=== PATIENT | female | born 1980 | race Caucasian/White ===

== ENCOUNTER 2016-09-20 05:45 | Inpatient (IN) | payer OTHER ==
[2016-09-20 06:46] VITALS: BMI 39.9
[2016-09-20] MEDS ORDERED: TUBERCULIN PPD 5 TU/0.1ML SYRINGE (IN PATIENT USE ONLY) ID ONE (07:00)
[2016-09-20] MEDS ORDERED: LACTATED RINGERS SOLUTION 500 ML IV SCH ×2 (07:30→08:30)
[2016-09-20 07:41] LABS: BASOPHIL 0.4 % (0-2.0); EOSINOPHIL 1.2 % (0-4.5); MCH 30.6 pg (25.7-33.7); MCHC 34.3 g/dl (32.0-36.0); MEAN CELL VOLUME 89.3 fl (80-96); MEAN PLT VOLUME 7.1 fl (7.5-11.1); NEUTROPHILS 69.1 % (42.8-82.8); PLATELET COUNT 250 K/MM3 (134-434); RDW 14.6 % (11.6-15.6)
[2016-09-20 07:45] LABS: ANION GAP 9 (8-16); CALCIUM 9.2 mg/dL (8.5-10.1); CO2 23 mmol/L (21-32); CREATININE 0.5 mg/dL (0.55-1.02); GLUCOSE,RANDOM 105 mg/dL (74-106)
[2016-09-20 08:06] LABS: INR 0.97 (0.82-1.09); PROTHROMBIN TIME (PATIENT) 10.7 SEC (9.98-11.88)
[2016-09-20 08:09] LABS: ACTIVATED PTT 28.5 SECONDS (26.9-34.4)
[2016-09-20] MEDS ORDERED: PROMETHAZINE HCL 25 MG/1 ML VIAL IVPUSH ONE (08:11)
[2016-09-20] MEDS ORDERED: BUTORPHANOL TARTRATE 1 MG/ML VIAL IVPB ONE (08:11)
[2016-09-20] MEDS ORDERED: AMPICILLIN - 100 ML IVPB ONE (08:13)
[2016-09-20] MEDS: ELECTROLYTE-148 SOLN 1,000 ML IV SCH ×3 (10:00→15:18)
--- NOTE | 2016-09-20 10:11 | HP ---
Past Medical History - Admission Chief Complaint: Painful contractions. History of Present Illness: 36 y/o with SIUP at 39 weeks gestation here with complaints of painful contractions since early this a.m. Patient was initially scheduled for IOL 2/2 A1GDM, gHTN and pt with h/o macrosomia - EFW most recently 4267gm on 09/12. GBS positive. RH negative, s/p Rhogam on 07/07/16. Pt also with remote h/o chalmydia. Pt reports +FM, no VB/LOF upon arrival. Pt 1cm upon arrival to floor at 6am. History Source: Patient, Medical Record Limitations to Obtaining History: No Limitations - Past Medical History Pulmonary: No: Asthma, COPD Gastrointestinal: No: GERD Hepatobiliary: No: Hepatitis B Reproductive: No: Ectopic , Endometriosis, Fibroids ...: 7 ...Para: 2 ...Term: 2 ...: 0 ...Spon : 0 ...Induced : 4 ...Multiple Gestation: 0 ...LMP: 12/22/15 ... Weeks Gestation by Dates: 39 ...EDC by Dates: 09/27/16 ...EDC by Sono: 09/29/16 Heme/Onc: No: Anemia, Sickle Cell Trait Infectious Disease: No: HIV, MRSA, STD's Psych: No: Anxiety, Bipolar, Depression - Past Surgical History Hx Myomectomy: No Hx Transabdominal Cerclage: No - Smoking History Smoking history: Never smoked Have you smoked in the past 12 months: No - Alcohol/Substance Use Hx Alcohol Use: No - Social History Usual Living Arrangement: Yes: With Significant Other History of Recent Travel: No Home Medications - Allergies Allergies/Adverse Reactions: Allergies Allergy/AdvReac Type Severity Reaction Status Date / Time No Known Allergies Allergy Verified 09/16/16 10:52 - Home Medications Home Medications: Ambulatory Orders Pnv95/Ferrous Fumarate/FA [ Vitamin Tablet] 1 each PO DAILY 09/06/16 Review of Systems - Review of Systems Constitutional: reports: No Symptoms Eyes: reports: No Symptoms HENT: reports: No Symptoms Neck: reports: No Symptoms Cardiovascular: reports: No Symptoms Respiratory: reports: No Symptoms Gastrointestinal: denies: Constipation, Diarrhea Genitourinary: reports: Pain (contraction pain) Musculoskeletal: reports: No Symptoms Integumentary: reports: No Symptoms Neurological: reports: No Symptoms Hematology/Lymphatic: reports: No Symptoms Psychiatric: reports: No Symptoms Physical Exam - Maternity Vital Signs: Vital Signs Temperature 97.8 F 09/20/16 06:40 Pulse Rate 84 09/20/16 09:00 Respiratory Rate 18 09/20/16 09:00 Blood Pressure 135/86 09/20/16 09:00 O2 Sat by Pulse Oximetry (%) Constitutional: Yes: Well Nourished, No Distress, Calm Eyes: Yes: Conjunctiva Clear, EOM Intact HENT: Yes: Atraumatic, Normocephalic Neck: Yes: Supple, Trachea Midline Cardiovascular: Yes: Regular Rate and Rhythm Lungs: Normal air movement - Abdominal Exam/OB Number of Fetuses: Single Presentation: Vertex Contractions: Yes Regularity: Regular Intensity: Moderate Monitor Mode: External Heart Rate (range): 125 Category: II Accelerations: None Decelerations: None - Vaginal Exam/OB Dilatation (cm): 4 Effacement (%): 100 Amniotic Membrane Status: Ruptured (AROM for clear but blood tinged fluid on this exam) Presentation: Vertex/Position Station: -3 - Physical Exam Psychiatric: Yes: Alert, Oriented - Labs Lab Results: CBC, BMP 09/20/16 07:10 09/20/16 07:10 Hemorrhage Risk Assessment - Risk Factors Medium Risk Factors: Yes: None High Risk Factors: Yes: None Risk Score: 1 Risk Level: Medium Risk Problem List - Problems (1) Active labor at term Code(s): VJD4603 - (2) Gestational diabetes mellitus (GDM) Code(s): O24.419 - GESTATIONAL DIABETES MELLITUS IN , UNSP CONTROL (3) Gestational hypertension Code(s): O13.9 - GESTATIONAL HTN W/O SIGNIFICANT PROTEINURIA, UNSP TRIMESTER Assessment/Plan 36 y/o with SIUP at 39 weeks in labor - AFVSS - FHTS cat 1 upon arrival, now category 2 s/p stadol (minimal variability - no accelerations or decelerations), making active progress, continue to monitor - Active labor, s/p AROM, continue expectant management - GBS positive - continue ampicillin - gHTN - pt asymptomatic, BPs overall WNL with some mild outliers, to monitor
[2016-09-20] MEDS ORDERED: LACTATED RINGERS SOLUTION 1,000 ML IV SCH (10:30)
[2016-09-20] MEDS: FENTANYL/BUPIVACAINE/NS/PF - PCEA - 50 ML DISP.SYRIN EP SCH ×2 (11:15→15:36)
[2016-09-20] MEDS: AMPICILLIN - 100 ML IVPB SCH ×3 (12:34→20:30)
--- NOTE | 2016-09-20 13:45 | PN ---
Ante-Partal Exam - Subjective Subjective: Pt comfortable Vital Signs: Vital Signs Temperature 98.0 F 09/20/16 12:28 Pulse Rate 100 H 09/20/16 13:00 Respiratory Rate 20 09/20/16 13:00 Blood Pressure 126/58 09/20/16 13:00 O2 Sat by Pulse Oximetry (%) 100 09/20/16 13:00 Bleeding: Yes Bleeding Description: Mild Headache: No Visual changes: No Right upper quadrant pain: No - Contractions Contractions: Yes Regularity: Regular Intensity: Mod/Strong Monitor Mode: External - Exam during Labor Heart Rate: 145 Variability: Moderate Category: I Monitor Accelerations: Absent Monitor Decelerations: None Exam: Vaginal Dilatation (cm): 7 Effacement (%): 100 Amniotic Membrane Status: Ruptured - Assessment/Plan Assessment/Plan: continue expectant management GBS positive, continue ampicillin anticipate
--- NOTE | 2016-09-20 17:29 | PN ---
Ante-Partal Exam - Subjective Subjective: Patient feeling some contractions on the left side. Vital Signs: Vital Signs Temperature 97.8 F 09/20/16 15:56 Pulse Rate 93 H 09/20/16 16:15 Respiratory Rate 20 09/20/16 16:15 Blood Pressure 139/79 09/20/16 16:15 O2 Sat by Pulse Oximetry (%) 99 09/20/16 16:15 Bleeding: Yes Bleeding Description: Mild (consistent with bloody show) Headache: No Visual changes: No Right upper quadrant pain: No - Contractions Contractions: Yes Regularity: Regular Intensity: Mod/Strong Monitor Mode: External - Exam during Labor Heart Rate: 145 Variability: Moderate Category: I Monitor Decelerations: None Exam: Vaginal Dilatation (cm): 9.5 Effacement (%): 100 Amniotic Membrane Status: Ruptured Amniotic Fluid: Clear Presentation: Vertex Station: -2 - Intrapartum Hemorrhage Risk Medium Risk Factors: None High Risk Factors: None Risk Score: 0 Risk Level: Low Risk - Assessment/Plan Assessment/Plan: 36 y/o with SIUP at 39 weeks, labor, A1GDM and gestational HTN - FHTS cat 1 - active labor, 9.5cm dilated, attempted pushing at this time with little descent. Will allow to rest and return to pushing in approx 60 minutes - GBS positive, continue ampicillin
[2016-09-20] MEDS ORDERED: OXYTOCIN 15 UNITS/ LR 250 ML 250 ML IVPB SCH (17:30)
[2016-09-20] MEDS ORDERED: CITRIC ACID/SODIUM CITRATE 30 ML UNIT-DOSE CUP PO ONE (18:53)
--- NOTE | 2016-09-20 18:56 | PN ---
Ante-Partal Exam - Subjective Subjective: Pt complaining of pain with contractions. Pt now 10/100/+1 and to begin pushing. Vital Signs: Vital Signs Temperature 99.4 F 09/20/16 17:36 Pulse Rate 107 H 09/20/16 18:30 Respiratory Rate 24 09/20/16 18:30 Blood Pressure 135/79 09/20/16 18:30 O2 Sat by Pulse Oximetry (%) 100 09/20/16 18:30 Bleeding: Yes Bleeding Description: Mild Headache: No Visual changes: No Right upper quadrant pain: No - Contractions Contractions: Yes Regularity: Regular Intensity: Mod/Strong - Exam during Labor Heart Rate: 150 Variability: Minimal Category: I Monitor Accelerations: Absent Monitor Decelerations: None Exam: Vaginal Dilatation (cm): 10 Effacement (%): 100 Amniotic Membrane Status: Ruptured Station: +1 (+1 with contractions) - Assessment/Plan Assessment/Plan: Pt pushing for approximately 20 minutes, tachycardia to the 200s with pushing. Pt making little descent. Pt desires delivery. Nursing, anesthesia and nursery aware. plan for c section
[2016-09-20] MEDS: OXYTOCIN 20 UNITS in 0.9% NS 1,000 ML IV SCH ×2 (19:43→21:35)
[2016-09-20] MEDS ORDERED: oxyCODONE HCL 5 MG TABLET PO PRN (20:25)
[2016-09-20] MEDS ORDERED: CARBOPROST TROMETHAMINE 250 MCG/ML AMPUL IM PRN (20:27)
--- NOTE | 2016-09-20 20:30 | OP ---
Operative Note - Note: Operative Date: 09/20/16 Pre-Operative Diagnosis: SIUP at 39 weeks, labor, GBS positive, arrest of descent Operation: primary delivery Findings: normal b/l tubes and ovaries Post-Operative Diagnosis: Same as Pre-op Surgeon: Tricia Valladares Sous Chef: Anderson Perez Anesthesiologist/PLATING TANK OPERATOR APPRENTICE: Ricardo Adler Anesthesia: Epidural Specimens Removed: placenta Estimated Blood Loss (mls): 800 Operative Report Dictated: Yes
[2016-09-20] MEDS ORDERED: morphine SULFATE/Preservative Free 0.5 MG/ML (1cc Syringe) EP ONE (20:46)
[2016-09-20] MEDS: IBUPROFEN 800 MG/8 ML IJ IVPB PRN (21:35)
[2016-09-20 22:25] LABS: BASOPHIL 0.2 % (0-2.0); MCH 30.4 pg (25.7-33.7); MCHC 33.6 g/dl (32.0-36.0); MEAN CELL VOLUME 90.4 fl (80-96); MEAN PLT VOLUME 7.5 fl (7.5-11.1); NEUTROPHILS 89.3 % (42.8-82.8); PLATELET COUNT 256 K/MM3 (134-434); RDW 14.5 % (11.6-15.6); WHITE BLOOD COUNT 21.4 K/mm3 (4.0-10.0)
[2016-09-21] MEDS: AMPICILLIN - 100 ML IVPB SCH (01:24)
[2016-09-21] MEDS: IBUPROFEN 800 MG/8 ML IJ IVPB PRN (03:59)
[2016-09-21] MEDS: OXYTOCIN 20 UNITS in 0.9% NS 1,000 ML IV SCH ×2 (04:03→22:58)
[2016-09-21] MEDS: ACETAMINOPHEN 325 MG TABLET (FP) PO PRN ×2 (07:56→21:23)
[2016-09-21 08:18] LABS: BASOPHIL 0.3 % (0-2.0); EOSINOPHIL 0.2 % (0-4.5); MCH 30.7 pg (25.7-33.7); MCHC 33.9 g/dl (32.0-36.0); MEAN CELL VOLUME 90.6 fl (80-96); MEAN PLT VOLUME 6.7 fl (7.5-11.1); NEUTROPHILS 75.8 % (42.8-82.8); PLATELET COUNT 218 K/MM3 (134-434); RDW 14.7 % (11.6-15.6); WHITE BLOOD COUNT 15.2 K/mm3 (4.0-10.0)
[2016-09-21 08:56] LABS: ALBUMIN 1.9 g/dl (3.4-5.0); ALK PHOS 108 U/L (45-117); ANION GAP 7 (8-16); CALCIUM 7.9 mg/dL (8.5-10.1); CO2 24 mmol/L (21-32); CREATININE 0.4 mg/dL (0.55-1.02); GLUCOSE,RANDOM 92 mg/dL (74-106); SGOT/AST 18 U/L (15-37); SGPT/ALT 12 U/L (12-78); TOT PROT 4.5 g/dl (6.4-8.2)
[2016-09-21 08:58] LABS: BILIRUBIN,TOTAL 0.4 mg/dL (0.2-1.0)
--- NOTE | 2016-09-21 09:27 | PN ---
Progress Note (short form) - Note Progress Note: Anesthesia Post op/Pain Pt seen and examined S:alert and awake Comfortable O: Vital Signs Temperature 98.4 F 09/21/16 09:05 Pulse Rate 88 09/21/16 09:05 Respiratory Rate 18 09/21/16 09:05 Blood Pressure 123/64 09/21/16 09:05 O2 Sat by Pulse Oximetry (%) 98 09/20/16 20:40 CBC, BMP 09/21/16 07:45 09/21/16 07:45 A/P: Active labor at term (Acute) Gestational diabetes mellitus (GDM) (Acute) Gestational hypertension (Acute) s/p c section Doing well post op
[2016-09-21] MEDS: ENOXAPARIN NA (PORCINE) 40 MG/0.4 ML DISP.SYRIN SQ SCH (09:49)
[2016-09-21] MEDS: SIMETHICONE 80 MG TAB.CHEW (FP) PO PRN ×4 (09:51→21:22)
--- NOTE | 2016-09-21 10:01 | PN ---
Post Progress Note - Subjective Subjective: 36 yo Para 3, status post , seen and evaluated. She's out of bed to chair. Doing well Type of Delivery: Primary C/S Vital Signs: Vital Signs Temperature 98.4 F 09/21/16 09:05 Pulse Rate 88 09/21/16 09:05 Respiratory Rate 18 09/21/16 09:05 Blood Pressure 123/64 09/21/16 09:05 O2 Sat by Pulse Oximetry (%) 98 09/20/16 20:40 Breast Exam: Yes: Soft Uterus: Yes: Fundus Firm Incision: Yes: Dressing dry and intact Abdomen/GI: Yes: Abdomen soft, Tolerating PO Lochia: Yes: Rubra Lochia, amount: Small Extremities: Yes: Calves non-tender Perineum: Yes: Intact Activity: Ambulating - Labs Labs: CBC WBC 15.2 K/mm3 (4.0-10.0) H 09/21/16 07:45 RBC 3.08 M/mm3 (3.60-5.2) L 09/21/16 07:45 Hgb 9.5 GM/dL (10.7-15.3) L 09/21/16 07:45 Hct 27.9 % (32.4-45.2) L 09/21/16 07:45 MCV 90.6 fl (80-96) 09/21/16 07:45 MCHC 33.9 g/dl (32.0-36.0) 09/21/16 07:45 RDW 14.7 % (11.6-15.6) 09/21/16 07:45 Plt Count 218 K/MM3 (134-434) 09/21/16 07:45 MPV 6.7 fl (7.5-11.1) L D 09/21/16 07:45 Neutrophils % 75.8 % (42.8-82.8) 09/21/16 07:45 Lymphocytes % 15.4 % (8-40) D 09/21/16 07:45 Monocytes % 8.3 % (3.8-10.2) 09/21/16 07:45 Eosinophils % 0.2 % (0-4.5) D 09/21/16 07:45 Basophils % 0.3 % (0-2.0) 09/21/16 07:45 Problem List - Problems (1) Status post repeat low transverse section (2) Status post section Code(s): Z98.891 - HISTORY OF UTERINE SCAR FROM PREVIOUS SURGERY Assessment/Plan Status post Ambulation Analgesia as needed Continue routine Post op care
[2016-09-21] MEDS ORDERED: DIPHTH,PERTUSS(ACELL),TET 0.5 ML DISP.SYRIN IM ONE (11:00)
--- NOTE | 2016-09-21 11:13 | OP ---
DATE OF OPERATION: 09/21/2015 PREOPERATIVE DIAGNOSIS: Single intrauterine at 39 weeks, A1 gestational diabetes, gestational hypertension, group B streptococcus negative, and arrest of descent. POSTOPERATIVE DIAGNOSIS: Single intrauterine at 39 weeks, A1 gestational diabetes, gestational hypertension, group B streptococcus negative, and arrest of descent. PROCEDURE: Primary low transverse section. SURGEON: Tricia Olivo MD LABOR DELIVERY RN: Anderson Perez PA-C ANESTHESIA: Epidural, initially administered by Dr. Brandt Sanches, and then maintained throughout the procedure by Dr. Ricardo Adler. ESTIMATED BLOOD LOSS: 800 mL. COMPLICATIONS: None. SPECIMENS REMOVED: Included placenta, which was sent to Pathology for permanent evaluation. COUNTS: Sponge, needle, and instrument counts correct at the end of the case. DISPOSITION: Stable to the recovery room. BRIEF HISTORY AND PROCEDURE: Patient is a 36-year-old G-7 P-2 female who arrived to labor and delivery on the morning of September 20, 2016, complaining of painful contractions. Patient was admitted to labor and delivery in labor at that time. The patient underwent artificial rupture of amniotic membranes around 10:00 a.m. and shortly thereafter received an epidural for pain control. She was noted to progress with labor throughout the day, and approximately 1800 hours in the evening, patient was last found to be fully dilated. A trial of pushing was commenced. After approximately 30 minutes of pushing, heart rate became tachycardic into the 200s. Patient was making no progress and no descent with pushing at this time. The patient had actually requested section at that time. Risks, benefits, and alternatives were discussed with the patient, and the patient agreed and requested to undergo a section. Consent to the procedure was signed. The patient was then taken back to the operating room where her epidural was bolused, and then, she was placed in the dorsal supine position. A Bullard catheter had been placed earlier in the day under sterile conditions. She was prepped and draped in the usual sterile fashion, and then, a hard time-out was performed. A Pfannenstiel skin incision was created in the skin with the scalpel and carried to the underlying layer of rectus fascia with the scalpel as well as with the Bovie. The fascia was incised on either side of the midline with the Bovie, and the fascial incision was carried in the superior lateral direction with the Bovie. The fascia was tented upward with South clamps and dissected off the underlying layer of rectus muscle with the Bovie. The midline of the musculature was identified. The muscles were retracted laterally, and the peritoneum was entered bluntly. The bladder blade was inserted to protect the bladder. Next, a transverse incision on the lower uterine segment was created with a scalpel, and this incision was carried in the superior lateral direction bluntly. The was then delivered from the right occiput anterior position without difficulty. Bilateral shoulders and the remainder of the infant were delivered with ease. Delayed cord clamping was completed, and after 60 seconds, the cord was clamped twice and cut in between. A 3-vessel cord was noted. The was taken over to the warmer to be assessed by the neonatology staff who was present for the entire delivery. scores were 9 and 9. The placenta was then delivered manually and intact. The uterus was exteriorized from the abdomen, inspected, and cleared of all amniotic membrane and debris with a dry lap sponge. The hysterotomy was reapproximated in a double-layer closure, first with 1-0 Vicryl suture in a running locked fashion, a 2nd layer with 0 Biosyn suture in a running locked fashion. Any areas of bleeding after this repair were controlled with several figure-of-8 sutures using a 0 Biosyn suture. Bilateral tubes and ovaries were inspected and noted to be within normal limits. The posterior cul-se-sac was suctioned. The uterus was placed back into the abdomen. Bilateral gutters were inspected and cleared of all debris. Inspection again of the hysterotomy revealed one area of bleeding, which a few more figure-of-8 sutures were placed and hemostasis was achieved. Next, the peritoneal layer was reapproximated using 2-0 chromic in a running fashion. The musculature was reapproximated in 2 interrupted sutures using 2-0 chromic. The fascia was reapproximated using 1 Vicryl in a running fashion. The subcutaneous tissue was irrigated and reapproximated using Vicryl suture in a running fashion, and the skin was reapproximated using 3-0 Vicryl suture in a subcuticular fashion. Steri-Strips were applied. The patient tolerated the procedure well and was recovering in stable condition in the recovery room after the procedure. TRICIA OLIVO DO /[id number]
[2016-09-21] MEDS: oxyCODONE HCL 5 MG TABLET PO PRN ×3 (13:33→21:22)
[2016-09-21] MEDS: IBUPROFEN 600 MG TABLET (FP) PO PRN ×3 (13:34→21:23)
[2016-09-21] MEDS ORDERED: BISACODYL 10 MG SUPP.RECT RC PRN (20:25)
[2016-09-22] MEDS: SIMETHICONE 80 MG TAB.CHEW (FP) PO PRN ×5 (01:33→18:56)
[2016-09-22] MEDS: oxyCODONE HCL 5 MG TABLET PO PRN ×6 (01:34→23:09)
[2016-09-22] MEDS: IBUPROFEN 600 MG TABLET (FP) PO PRN ×5 (01:35→18:58)
[2016-09-22] MEDS: ACETAMINOPHEN 325 MG TABLET (FP) PO PRN ×6 (01:36→23:10)
[2016-09-22] MEDS: ENOXAPARIN NA (PORCINE) 40 MG/0.4 ML DISP.SYRIN SQ SCH (10:00)
--- NOTE | 2016-09-22 13:19 | PN ---
Post Progress Note - Subjective Subjective: Pt seen/evaluated and doing well. Pain controlled, tolerating diet (clears). Ambulating, voiding. No flatus or BM yet. Denies dizziness/light headedness. VB minimal. Type of Delivery: Primary C/S Vital Signs: Vital Signs Temperature 98.0 F 09/22/16 09:47 Pulse Rate 94 H 09/22/16 09:47 Respiratory Rate 18 09/22/16 09:47 Blood Pressure 149/58 09/22/16 09:47 O2 Sat by Pulse Oximetry (%) 98 09/20/16 20:40 Uterus: Yes: Fundus Firm, Fundus @ umbilicus Incision: Yes: Sutures intact Abdomen/GI: Yes: Abdomen soft, Tolerating PO. No: Abdominal Distention, Tender , Passing flatus Lochia: Yes: Rubra Lochia, amount: Small Extremities: Yes: Calves non-tender, Edema (1+ edema in LE b/l - non pitting) Perineum: Yes: Intact Activity: Ambulating - Labs Labs: CBC WBC 15.2 K/mm3 (4.0-10.0) H 09/21/16 07:45 RBC 3.08 M/mm3 (3.60-5.2) L 09/21/16 07:45 Hgb 9.5 GM/dL (10.7-15.3) L 09/21/16 07:45 Hct 27.9 % (32.4-45.2) L 09/21/16 07:45 MCV 90.6 fl (80-96) 09/21/16 07:45 MCHC 33.9 g/dl (32.0-36.0) 09/21/16 07:45 RDW 14.7 % (11.6-15.6) 09/21/16 07:45 Plt Count 218 K/MM3 (134-434) 09/21/16 07:45 MPV 6.7 fl (7.5-11.1) L D 09/21/16 07:45 Neutrophils % 75.8 % (42.8-82.8) 09/21/16 07:45 Lymphocytes % 15.4 % (8-40) D 09/21/16 07:45 Monocytes % 8.3 % (3.8-10.2) 09/21/16 07:45 Eosinophils % 0.2 % (0-4.5) D 09/21/16 07:45 Basophils % 0.3 % (0-2.0) 09/21/16 07:45 Problem List - Problems (1) Active labor at term Code(s): MJK7654 - (2) Gestational diabetes mellitus (GDM) Code(s): O24.419 - GESTATIONAL DIABETES MELLITUS IN , UNSP CONTROL (3) Gestational hypertension Code(s): O13.9 - GESTATIONAL HTN W/O SIGNIFICANT PROTEINURIA, UNSP TRIMESTER (4) Status post section Code(s): Z98.891 - HISTORY OF UTERINE SCAR FROM PREVIOUS SURGERY Assessment/Plan 36 y/o POD#2 s/p primary delivery and doing well - AFVSS - Hgb 9.5 post op, pt stable - regular diet, PO pain meds, routine care - plan for discharge home POD 3 or 4
[2016-09-23] MEDS: IBUPROFEN 600 MG TABLET (FP) PO PRN (03:07)
[2016-09-23] MEDS: oxyCODONE HCL 5 MG TABLET PO PRN ×2 (03:07→07:41)
[2016-09-23] MEDS: ACETAMINOPHEN 325 MG TABLET (FP) PO PRN (07:42)
[2016-09-23] MEDS: SIMETHICONE 80 MG TAB.CHEW (FP) PO PRN (07:57)
--- NOTE | 2016-09-23 08:00 | DS ---
Physical Exam-HOSPITAL NURSE Vital Signs: Vital Signs Temperature 98.0 F 09/22/16 22:00 Pulse Rate 85 09/22/16 22:00 Respiratory Rate 20 09/22/16 22:00 Blood Pressure 120/60 09/22/16 22:00 O2 Sat by Pulse Oximetry (%) 98 09/20/16 20:40 Constitutional: Yes: Well Nourished Eyes: Yes: Conjunctiva Clear HENT: Yes: Atraumatic Neck: Yes: Supple, Trachea Midline Cardiovascular: Yes: Regular Rate and Rhythm Respiratory: Yes: Regular, CTA Bilaterally Gastrointestinal: Yes: Normal Bowel Sounds External Genitalia: Yes: Normal Vaginal Exam: Yes: Normal Cervix: Yes: Normal Uterus: Yes: Firm Wound/Incision: Yes: Clean/Dry, Well Approximated, Steri Strips (in place) Neurological: Yes: Alert, Oriented ...Motor Strength: WNL Psychiatric: Yes: Alert, Oriented Labs: CBC, BMP 09/21/16 07:45 Delivery - Delivery Type of Anesthesia: Epidural Episiotomy/Laceration: None EBL (cc): 800 Delivery, Single - Stages of Labor Date 1st Stage Initiatied: 09/20/16 Time 1st Stage Initiated: 08:00 Date 2nd Stage Initiated: 09/20/16 Time 2nd Stage Initiated: 18:30 Date of Delivery: 09/20/16 Time of Delivery: 19:42 Time Placenta Delivered: 19:43 - Condition of Infant Rn Homecare/Lock Plater Present: Yes Name: Tasia Jiang Gender: Male Weight: 9 lb 11 oz Position: Right, OA Total Hours ROM (Hrs/Mins): 9hrs/43mins - 1 Minute Total Score: 9 5 Minutes Total Score: 9 - [place] Feeding Plan Initial Plan: Elected not to breastfeed exclusively throughout hospitalization Discharge Summary Reason For Visit: ADMIT-INDUCTION Current Active Problems Active labor at term (Acute) Gestational diabetes mellitus (GDM) (Acute) Gestational hypertension (Acute) Status post section (Acute) Status post repeat low transverse section (Acute) Procedures: Principal: Repeat Hospital Course: Routine Post op care Condition: Good - Instructions Diet, Activity, Other Instructions: Regular diet Wound care No driving, no lifting x 4 weeks F/U with MD in 1 week Referrals: Windy Cody MD [Staff Physician] - Tricia Valladares DO [Staff Physician] - Disposition: HOME - Home Medications Comprehensive Discharge Medication List: Ambulatory Orders Pnv95/Ferrous Fumarate/FA [ Vitamin Tablet] 1 each PO DAILY 09/06/16
[2016-09-23 08:02] LABS: BASOPHIL 0.5 % (0-2.0); EOSINOPHIL 2.4 % (0-4.5); MCHC 33.9 g/dl (32.0-36.0); MEAN CELL VOLUME 91.3 fl (80-96); MEAN PLT VOLUME 6.6 fl (7.5-11.1); PLATELET COUNT 269 K/MM3 (134-434)
[2016-09-23 09:13] VITALS: BP 113/59; PULSE 82; TEMP 97.9
[2016-09-23] MEDS: ENOXAPARIN NA (PORCINE) 40 MG/0.4 ML DISP.SYRIN SQ SCH (10:22)
--- NOTE | 2016-09-25 13:40 | PATH ---
Surgical Pathology Report Patient Name: ARMEN SEGAL Med. Rec. #: [id number] /Age/Gender: 1980 (Age: 36) / F Account: [id number] Location: [facility] OBS/FINE ARTIST Taken: 09/20/2016 Received: 09/21/2016 Reported: 09/25/2016 Physicians: Tricia Valladares M.D. Specimen(s) Received PLACENTA Clinical History , maternal obesity, IAB x4, x2, gestational diabetes-diet controlled, positive chlamydia, positive HPV Primary c/section Final Diagnosis PLACENTA, DELIVERY: FOCALLY DISRUPTED THIRD TRIMESTER PLACENTA WITH MILD TO MODERATE INCREASE IN PREVILLOUS, PERIVILLOUS, AND PRECHORIONIC FIBRIN DEPOSITION, THREE VESSEL UMBILICAL CORD, AND PLACENTAL MEMBRANES WITH ACUTE CHORIOAMNIONITIS AND ACUTE INFLAMMATION OF CHORIONIC PLATE. Electronically Signed Fredi Harrell M.D. Gross Description The specimen is received fresh, labeled "placenta" and is a 553 gram, 19.5 x 16.5 x 2.4 cm placenta with attached membranes and umbilical cord. The attached membranes are aggarwal, translucent with focal opacities and insert marginally. The umbilical cord measures 28 cm in length and averages 1.2 cm in diameter. The cord inserts eccentrically, 4 cm. to the nearest margin. No true knots or strictures are identified. Cut surface of the umbilical cord reveals 3 vessels. The surface is martinez-blue with fibrin deposition and appropriate caliber vessels. The maternal surface is red-brown with focal defects. Sectioning reveals red-brown, spongy parenchyma. No focal lesions are identified. Handkerchief Cutter sections are submitted in three cassettes as follows: 1- membrane rolls and umbilical cord; 2-3- full thickness sections of placenta. 09/22/201609/22/2016
== END 2016-09-23 11:05 | disposition home or self-care (01) | DRG 766 ==
LOC: JLDR 05:45 → J3W 22:15
PROVIDERS: ADMIT Obstetrics & Gynecology; ATTEND Obstetrics & Gynecology
PROC: 10D00Z1 Extraction of Products of Conception, Low, Open Approach (ICD-10-PCS; principal; 2016-09-20)
PROC: 3E0234Z Introduction of Serum, Toxoid and Vaccine into Muscle, Percutaneous Approach (ICD-10-PCS; 2016-09-20)
DX: O32.4XX0 Maternal care for high head at term, not applicable or unspecified (principal); O13.4 Gestational [pregnancy-induced] hypertension without significant proteinuria, complicating childbirth; O99.824 Streptococcus B carrier state complicating childbirth; O26.893 Other specified pregnancy related conditions, third trimester; Z67.11 Type A blood, Rh negative; Z37.0 Single live birth; Z3A.39 39 weeks gestation of pregnancy
CPT/HCPCS: 36415; 80048; 80053; 85025; 85461; 85610; 85730; 86593; 86850; 86900; 86901; 86999; 88307-TC; 90715

== ENCOUNTER 2022-11-27 05:12 | Day surgery (SDC) | payer OTHER ==
[2022-11-23 10:42] VITALS: BMI 25.8
[2022-11-27 09:42] VITALS: RESP 20
[2022-11-27] MEDS ORDERED: MIDAZOLAM HCL 2 MG/2 ML SINGLE DOSE VIAL ONE (11:38)
[2022-11-27] MEDS ORDERED: IBUPROFEN 400 MG TABLET (FP) PO PRN (11:59)
[2022-11-27] MEDS ORDERED: ACETAMINOPHEN 325 MG TABLET (FP) PO PRN (11:59)
[2022-11-27] MEDS ORDERED: PROMETHAZINE HCL 25 MG/1 ML VIAL IVPB PRN (13:16)
[2022-11-27] MEDS ORDERED: oxyCODONE HCL 5 MG TABLET PO PRN (13:16)
[2022-11-27] MEDS ORDERED: ONDANSETRON 4 MG/2 ML VIAL IVPUSH PRN (13:16)
[2022-11-27 15:18] VITALS: BP 104/57; PULSE 70
[2022-11-27 16:41] VITALS: TEMP 97.6
== END 2022-11-27 14:38 | disposition home or self-care (01) ==
LOC: JASU-SURG 05:12
PROVIDERS: ATTEND Obstetrics & Gynecology
PROC: 0UB98ZZ Excision of Uterus, Via Natural or Artificial Opening Endoscopic (ICD-10-PCS; principal; 2022-11-27 11:00)
DX: N92.0 Excessive and frequent menstruation with regular cycle (principal); D25.0 Submucous leiomyoma of uterus; N84.0 Polyp of corpus uteri
CPT/HCPCS: 81025; 86850; 86900; 86901; 88305-TC; 94760

== ENCOUNTER 2023-11-15 01:53 | Day surgery (SDC) | payer OTHER ==
[2023-11-15] MEDS ORDERED: KETOROLAC TROMETHAMINE 15 MG/ML VIAL ONE ×2 (02:32→08:30)
[2023-11-15] MEDS: KETOROLAC TROMETHAMINE 15 MG/ML VIAL IVPUSH ONE (02:42)
[2023-11-15 02:48] LABS: HEMOGLOBIN 13.5 GM/dL (10.7-15.3)
[2023-11-15 02:50] LABS: BASO % 0.7 % (0-2.0); EOS % 2.1 % (0-4.5); HEMATOCRIT 39.4 % (32.4-45.2); LYMPH % 17.2 % (8-40); MCH 31.7 pg (25.7-33.7); MCHC 34.3 g/dl (32.0-36.0); MEAN CELL VOLUME 92.4 fl (80-96); MEAN PLT VOLUME 6.7 fl (7.5-11.1); MONO % 8.1 % (3.8-10.2); NEUT % 71.9 % (42.8-82.8); PLATELET COUNT 333 10^3/uL (134-434); RBC 4.27 M/mm3 (3.60-5.2); RDW 12.9 % (11.6-15.6); WHITE BLOOD COUNT 13.2 K/mm3 (4.0-10.0)
[2023-11-15 02:50] LABS: EPI CELLS 18 /uL (0-25.1); HYALINE CASTS 0 /uL (0-3.1); PH,URINE 7.5 (5.0-8.0); URINE APPEARANCE CLOUDY; URINE BACTERIA 149 /uL (0-1359); URINE BILIRUBIN NEGATIVE (NEGATIVE); URINE COLOR YELLOW; URINE GLUCOSE (UA) NEGATIVE (NEGATIVE); URINE KETONE NEGATIVE (NEGATIVE); URINE LEUK ESTERASE NEGATIVE (NEGATIVE); URINE NITRITE NEGATIVE (NEGATIVE); URINE PROTEIN NEGATIVE (NEGATIVE); URINE RBC 107 /uL (0-23.9); URINE UROBILINOGEN 0.2 mg/dL (0.2-1.0); URINE WBC 14 /uL (0-25.8)
[2023-11-15] MEDS ORDERED: morphine SULFATE 4 MG/ML VIAL ONE ×2 (02:58→04:48)
[2023-11-15 03:03] LABS: POTASSIUM 3.9 mmol/L (3.5-5.1)
[2023-11-15] MEDS: morphine CARPU-JECT 4 MG/1 ML DISP.SYRIN IVPUSH ONE ×2 (03:03→04:53)
[2023-11-15] MEDS: SODIUM CHLORIDE 1,000 ML IV STA (03:03)
[2023-11-15 03:06] LABS: ALBUMIN 3.9 g/dl (3.4-5.0); BLOOD UREA NITROGEN 16.9 mg/dL (7-18); CALCIUM 9.3 mg/dL (8.5-10.1)
[2023-11-15 03:10] LABS: CREATININE 0.8 mg/dL (0.55-1.3)
[2023-11-15 03:11] LABS: BILIRUBIN,TOTAL 0.5 mg/dL (0.2-1); TOT PROT 6.9 g/dl (6.4-8.2)
[2023-11-15 04:03] LABS: HIV INTERPRETATION NEGATIVE (NEGATIVE)
[2023-11-15] MEDS ORDERED: CEFTRIAXONE 1 GM/50 ML BAG ONE (05:35)
[2023-11-15 06:38] LABS: INR 0.88 (0.83-1.09)
[2023-11-15 06:41] LABS: ACTIVATED PTT 34.8 SECONDS (25.2-36.5)
[2023-11-15] MEDS ORDERED: HYDROmorphone HCL CARPU-JECT 2 MG/1 ML DISP.SYRIN ONE (06:48)
[2023-11-15] MEDS: HYDROmorphone HCl 2 MG/ML VIAL IVPUSH ONE (06:53)
[2023-11-15] MEDS: KETOROLAC TROMETHAMINE 30 MG/1 ML VIAL IVPUSH ONE (08:34)
[2023-11-15] MEDS: SODIUM CHLORIDE 1,000 ML IV SCH ×2 (10:50→16:48)
[2023-11-15] MEDS ORDERED: MORPHINE SULFATE 2 MG/ML SYRINGE ONE (10:51)
[2023-11-15] MEDS: MORPHINE SULFATE 2 MG/ML SYRINGE IVPUSH PRN (10:56)
[2023-11-15] MEDS: morphine SULFATE 4 MG/ML VIAL IVPUSH PRN (12:57)
[2023-11-15] MEDS: ACETAMINOPHEN 1000 MG/100 ML BAG IVPB PRN (13:55)
[2023-11-15] MEDS ORDERED: MIDAZOLAM HCL 2 MG/2 ML SINGLE DOSE VIAL ONE (15:30)
[2023-11-15] MEDS ORDERED: ONDANSETRON 4 MG/2 ML VIAL IVPUSH PRN (16:22)
[2023-11-15] MEDS ORDERED: LACTATED RINGERS SOLUTION 1,000 ML IV SCH (16:30)
[2023-11-15] MEDS ORDERED: ACETAMINOPHEN 1000 MG/100 ML BAG IVPB PRN (16:39)
[2023-11-15] MEDS ORDERED: morphine SULFATE 4 MG/ML VIAL IVPUSH PRN (16:39)
[2023-11-15 18:08] VITALS: BMI 26.0
[2023-11-15 18:09] VITALS: RESP 18
[2023-11-16] MEDS ORDERED: CEFTRIAXONE 1 GM in DEXTROSE 5%-WATER - 50 ML IVPB SCH (10:00)
[2023-11-16 10:39] VITALS: BP 112/74; PULSE 78; TEMP 97.3
[2023-11-16] MEDS: CEFTRIAXONE 1 GM in DEXTROSE 5%-WATER - 50 ML IVPB SCH (11:29)
[2023-11-29 12:08] LABS: CA OXALATE MONOHYDR. 10 % (.); SIZE 4x4 mm (.); WEIGHT 70 mg (.)
== END 2023-11-16 15:20 | disposition home or self-care (01) ==
LOC: JER 01:53 → JERBED 04:56 → UNDOADMIN 04:56 → J5S 12:23 → JERBED 12:23 → JASUSAT 15:32 → SUATTDRO 15:32 → J5S 15:44 → JASUSAT 11-16 15:20
PROC: 0TC68ZZ Extirpation of Matter from Right Ureter, Via Natural or Artificial Opening Endoscopic (ICD-10-PCS; principal; 2023-11-15 16:00)
PROC: 0T768DZ Dilation of Right Ureter with Intraluminal Device, Via Natural or Artificial Opening Endoscopic (ICD-10-PCS; 2023-11-15 16:00)
DX: N13.2 Hydronephrosis with renal and ureteral calculous obstruction (principal)
CPT/HCPCS: 36415; 74176-TC; 76000-TC-FY; 80053; 81003; 82360; 84703; 85025; 85610; 85730; 86803; 86850; 86900; 86901; 87086; 87389; 88300-TC; 93005; 93010; 94760; 99285-25; C1758; C2617; J0131

== ENCOUNTER 2023-11-21 10:01 | Emergency (ER) | payer OTHER ==
[2023-11-21 10:12] VITALS: BP 143/79; PULSE 18; RESP 75; TEMP 97.6; BMI 26.1
[2023-11-21 11:43] LABS: HEMATOCRIT 40.5 % (32.4-45.2); HEMOGLOBIN 13.8 GM/dL (10.7-15.3); MCH 31.9 pg (25.7-33.7); MCHC 34.2 g/dl (32.0-36.0); MEAN CELL VOLUME 93.4 fl (80-96); MEAN PLT VOLUME 6.5 fl (7.5-11.1); PLATELET COUNT 372 10^3/uL (134-434); RBC 4.34 M/mm3 (3.60-5.2); RDW 12.7 % (11.6-15.6)
[2023-11-21 11:48] LABS: EPI CELLS 23 /uL (0-25.1); HCG,QUALITATIVE URINE Negative; HYALINE CASTS 3 /uL (0-3.1); URINE APPEARANCE CLOUDY; URINE BACTERIA 13 /uL (0-1359); URINE BILIRUBIN NEGATIVE (NEGATIVE); URINE COLOR RED; URINE GLUCOSE (UA) NEGATIVE (NEGATIVE); URINE KETONE NEGATIVE (NEGATIVE); URINE LEUK ESTERASE 2+ (NEGATIVE); URINE NITRITE NEGATIVE (NEGATIVE); URINE PROTEIN 2+ (NEGATIVE); URINE RBC 11265 /uL (0-23.9); URINE UROBILINOGEN 0.2 mg/dL (0.2-1.0); URINE WBC 147 /uL (0-25.8)
[2023-11-21 12:10] LABS: POTASSIUM 4.7 mmol/L (3.5-5.1)
[2023-11-21 12:12] LABS: CALCIUM 10.3 mg/dL (8.5-10.1)
[2023-11-21 12:13] LABS: BLOOD UREA NITROGEN 12.6 mg/dL (7-18)
[2023-11-21 12:16] LABS: CREATININE 0.6 mg/dL (0.55-1.3)
== END 2023-11-21 13:30 | disposition home or self-care (01) ==
LOC: JER 10:01
DX: R10.9 Unspecified abdominal pain (principal); R30.0 Dysuria
CPT/HCPCS: 36415; 80048; 81003; 84703; 85027; 87086; 99283-25

== ENCOUNTER 2024-03-14 20:07 | Inpatient (IN) | payer OTHER ==
[2024-03-14 20:13] VITALS: BMI 27.7
[2024-03-14] MEDS ORDERED: morphine CARPU-JECT 4 MG/1 ML DISP.SYRIN IVPUSH ONE (20:42)
[2024-03-14] MEDS ORDERED: morphine SULFATE 4 MG/ML VIAL ONE (20:58)
[2024-03-14] MEDS ORDERED: ACETAMINOPHEN INJECTION 100 ML ONE (20:59)
[2024-03-14] MEDS: SODIUM CHLORIDE 0.9% 500 ML INFUS.BAG IV ONE (21:15)
[2024-03-14] MEDS: ACETAMINOPHEN 1000 MG/100 ML BAG IVPB ONE (21:16)
[2024-03-14] MEDS: morphine SULFATE 4 MG/ML VIAL IVPUSH ONE (21:17)
[2024-03-14 21:19] LABS: BASO % 0.8 % (0-2.0); EOS % 0.1 % (0-4.5); HEMATOCRIT 39.3 % (32.4-45.2); HEMOGLOBIN 13.4 GM/dL (10.7-15.3); LYMPH % 4.4 % (8-40); MCH 31.5 pg (25.7-33.7); MCHC 34.1 g/dl (32.0-36.0); MEAN CELL VOLUME 92.2 fl (80-96); MEAN PLT VOLUME 6.7 fl (7.5-11.1); MONO % 9.2 % (3.8-10.2); NEUT % 85.5 % (42.8-82.8); PLATELET COUNT 258 10^3/uL (134-434); RBC 4.26 M/mm3 (3.60-5.2); RDW 12.8 % (11.6-15.6); WHITE BLOOD COUNT 18.8 K/mm3 (4.0-10.0)
[2024-03-14 21:49] LABS: POTASSIUM 3.7 mmol/L (3.5-5.1)
[2024-03-14 21:51] LABS: ALBUMIN 3.2 g/dl (3.4-5.0); BLOOD UREA NITROGEN 6.8 mg/dL (7-18); CALCIUM 8.9 mg/dL (8.5-10.1)
[2024-03-14 21:54] LABS: CREATININE 0.7 mg/dL (0.55-1.3)
[2024-03-14 21:56] LABS: BILIRUBIN,TOTAL 0.4 mg/dL (0.2-1); TOT PROT 6.4 g/dl (6.4-8.2)
[2024-03-14 22:34] LABS: EPI CELLS 4 /uL (0-25.1); HYALINE CASTS 5 /uL (0-3.1); URINE APPEARANCE CLEAR; URINE BACTERIA >9,000 /uL (0-1359); URINE BILIRUBIN NEGATIVE (NEGATIVE); URINE COLOR YELLOW; URINE GLUCOSE (UA) NEGATIVE (NEGATIVE); URINE KETONE TRACE (NEGATIVE); URINE LEUK ESTERASE 1+ (NEGATIVE); URINE NITRITE POSITIVE (NEGATIVE); URINE PROTEIN 1+ (NEGATIVE); URINE UROBILINOGEN 0.2 mg/dL (0.2-1.0); URINE WBC 475 /uL (0-25.8)
[2024-03-14 22:52] LABS: URINE RBC 179.8 /uL (0-23.9)
[2024-03-14] MEDS ORDERED: CEFTRIAXONE 1 G/50 ML PREMIX 50 ML IVPB ONE (23:54)
[2024-03-15] MEDS: CEFTRIAXONE 1,000 MG in DEXTROSE 5%-WATER - 50 ML IVPB ONE (00:05)
[2024-03-15] MEDS ORDERED: KETOROLAC TROMETHAMINE 15 MG/ML VIAL ONE (00:47)
[2024-03-15] MEDS: KETOROLAC TROMETHAMINE 15 MG/ML VIAL IVPUSH ONE (00:50)
[2024-03-15] MEDS: SODIUM CHLORIDE 1,000 ML IV SCH (04:13)
[2024-03-15] MEDS: morphine SULFATE 4 MG/ML VIAL IVPUSH PRN (04:26)
[2024-03-15] MEDS: ACETAMINOPHEN 1000 MG/100 ML BAG IVPB PRN (06:40)
[2024-03-15 09:19] LABS: BASO % 0.2 % (0-2.0); EOS % 0.1 % (0-4.5); HEMATOCRIT 37.1 % (32.4-45.2); HEMOGLOBIN 12.4 GM/dL (10.7-15.3); LYMPH % 4.4 % (8-40); MCH 31.1 pg (25.7-33.7); MCHC 33.4 g/dl (32.0-36.0); MEAN CELL VOLUME 93.1 fl (80-96); MEAN PLT VOLUME 6.9 fl (7.5-11.1); MONO % 11.2 % (3.8-10.2); NEUT % 84.1 % (42.8-82.8); PLATELET COUNT 249 10^3/uL (134-434); RBC 3.98 M/mm3 (3.60-5.2); RDW 12.5 % (11.6-15.6); WHITE BLOOD COUNT 18.9 K/mm3 (4.0-10.0)
[2024-03-15 09:44] LABS: POTASSIUM 3.2 mmol/L (3.5-5.1)
[2024-03-15 09:46] LABS: BLOOD UREA NITROGEN 5.9 mg/dL (7-18); CALCIUM 8.2 mg/dL (8.5-10.1)
[2024-03-15 09:49] LABS: CREATININE 0.6 mg/dL (0.55-1.3)
[2024-03-15] MEDS: POTASSIUM CHLORIDE ORAL LIQUID 20 MEQ/15 ML PO ONE (16:28)
[2024-03-15] MEDS: KCL 10 MEQ IVPB 10 MEQ/100 ML INFUS.BAG IVPB SCH (16:29)
[2024-03-15] MEDS: KETOROLAC TROMETHAMINE 15 MG/ML VIAL IVPUSH PRN (18:39)
[2024-03-16] MEDS: CEFTRIAXONE 1 G/50 ML PREMIX 50 ML IVPB SCH (09:36)
[2024-03-16 10:46] LABS: BASO % 0.4 % (0-2.0); EOS % 0.2 % (0-4.5); HEMOGLOBIN 12.4 GM/dL (10.7-15.3); MCHC 33.6 g/dl (32.0-36.0); MEAN CELL VOLUME 92.5 fl (80-96); MEAN PLT VOLUME 6.8 fl (7.5-11.1); MONO % 12.3 % (3.8-10.2); NEUT % 79.1 % (42.8-82.8); PLATELET COUNT 275 10^3/uL (134-434); WHITE BLOOD COUNT 15.9 K/mm3 (4.0-10.0)
[2024-03-16 11:08] LABS: POTASSIUM 3.8 mmol/L (3.5-5.1)
[2024-03-16 11:15] LABS: ALBUMIN 2.6 g/dl (3.4-5.0); BLOOD UREA NITROGEN 7.7 mg/dL (7-18)
[2024-03-16 11:17] LABS: BILIRUBIN,TOTAL 0.4 mg/dL (0.2-1); TOT PROT 6.1 g/dl (6.4-8.2)
[2024-03-16 11:18] LABS: CALCIUM 8.9 mg/dL (8.5-10.1)
[2024-03-16 11:19] LABS: CREATININE 0.5 mg/dL (0.55-1.3)
[2024-03-16] MEDS: morphine SULFATE 4 MG/ML VIAL IVPUSH ONE (15:22)
[2024-03-16] MEDS: ACETAMINOPHEN 1000 MG/100 ML BAG IVPB PRN (15:24)
[2024-03-16] MEDS: METOCLOPRAMIDE HCL INJECTION 10 MG/2 ML VIAL IVPUSH ONE (20:04)
[2024-03-17 10:36] LABS: BASO % 0.6 % (0-2.0); HEMATOCRIT 35.3 % (32.4-45.2); HEMOGLOBIN 11.7 GM/dL (10.7-15.3); LYMPH % 12.3 % (8-40); MCH 31.1 pg (25.7-33.7); MEAN PLT VOLUME 7.1 fl (7.5-11.1); MONO % 6.4 % (3.8-10.2); NEUT % 79.7 % (42.8-82.8); PLATELET COUNT 287 10^3/uL (134-434); RBC 3.75 M/mm3 (3.60-5.2); RDW 12.6 % (11.6-15.6); WHITE BLOOD COUNT 9.7 K/mm3 (4.0-10.0)
[2024-03-17 10:56] LABS: POTASSIUM 3.6 mmol/L (3.5-5.1)
[2024-03-17 10:59] LABS: ALBUMIN 2.4 g/dl (3.4-5.0); BLOOD UREA NITROGEN 6.3 mg/dL (7-18); CALCIUM 8.7 mg/dL (8.5-10.1)
[2024-03-17 11:03] LABS: CREATININE 0.5 mg/dL (0.55-1.3)
[2024-03-17 11:04] LABS: BILIRUBIN,TOTAL 0.6 mg/dL (0.2-1); TOT PROT 5.7 g/dl (6.4-8.2)
[2024-03-18 05:20] VITALS: RESP 18
[2024-03-18 08:58] LABS: BASO % 0.8 % (0-2.0); EOS % 1.7 % (0-4.5); HEMATOCRIT 33.9 % (32.4-45.2); HEMOGLOBIN 11.9 GM/dL (10.7-15.3); MCH 32.2 pg (25.7-33.7); MCHC 35.1 g/dl (32.0-36.0); MEAN CELL VOLUME 91.6 fl (80-96); MEAN PLT VOLUME 6.8 fl (7.5-11.1); MONO % 12.9 % (3.8-10.2); NEUT % 64.6 % (42.8-82.8); PLATELET COUNT 345 10^3/uL (134-434); RDW 12.9 % (11.6-15.6); WHITE BLOOD COUNT 8.1 K/mm3 (4.0-10.0)
[2024-03-18 09:18] LABS: POTASSIUM 3.8 mmol/L (3.5-5.1)
[2024-03-18 09:21] LABS: CALCIUM 8.5 mg/dL (8.5-10.1)
[2024-03-18 09:22] LABS: ALBUMIN 2.5 g/dl (3.4-5.0)
[2024-03-18 09:23] LABS: BLOOD UREA NITROGEN 8.4 mg/dL (7-18)
[2024-03-18 09:26] LABS: CREATININE 0.4 mg/dL (0.55-1.3)
[2024-03-18 09:27] LABS: BILIRUBIN,TOTAL 0.4 mg/dL (0.2-1); TOT PROT 5.9 g/dl (6.4-8.2)
[2024-03-18 12:54] VITALS: BP 123/81; PULSE 79; TEMP 98.2
== END 2024-03-18 14:20 | disposition home or self-care (01) | DRG 690 ==
LOC: JER 20:07 → JERBED 03-15 01:22 → J6S 03-15 05:56 → OBSVTOIN 03-17 14:56
PROVIDERS: ADMIT Internal Medicine; ATTEND Internal Medicine
DX: N10 Acute pyelonephritis (principal); R73.03 Prediabetes; N20.0 Calculus of kidney; B96.20 Unspecified Escherichia coli [E. coli] as the cause of diseases classified elsewhere; R10.30 Lower abdominal pain, unspecified
CPT/HCPCS: 36415; 74177-TC; 80048; 80053; 81003; 84703; 85025; 87086; 87186; 99285-25; G0378; J0131; Q9967